=== PATIENT | female | born 1945 | race Caucasian/White ===

== ENCOUNTER 2021-10-23 05:35 | Day surgery (SDC) | payer OTHER ==
[2021-10-23] MEDS ORDERED: LIDOCAINE HCL 1%, 10 MG/ML (20ML VIAL) ONE (13:07)
[2021-10-23] MEDS ORDERED: LIDOCAINE HCL 2% 100 MG/5 ML DISP.SYRIN ONE (13:14)
[2021-10-23] MEDS ORDERED: PROPOFOL 20 ML ONE (13:14)
[2021-10-23] MEDS ORDERED: DEXAMETHASONE SOD PHOSPHATE 4 MG/1 ML VIAL ONE (13:14)
[2021-10-23] MEDS ORDERED: MIDAZOLAM HCL 2 MG/2 ML SINGLE DOSE VIAL ONE (13:15)
[2021-10-23] MEDS ORDERED: ceFAZolin SODIUM 1 GM VIAL IVPB ONE (14:41)
[2021-10-23] MEDS ORDERED: ceFAZolin SODIUM 1 GM VIAL ONE (14:43)
[2021-10-23] MEDS ORDERED: ONDANSETRON 4 MG/2 ML VIAL IVPUSH PRN (15:05)
[2021-10-23] MEDS ORDERED: LIDOCAINE HCL 1%, 10 MG/ML (20ML VIAL) INF ONE (15:05)
[2021-10-23] MEDS ORDERED: LACTATED RINGERS SOLUTION 1,000 ML IV SCH (15:15)
[2021-10-23 16:02] VITALS: TEMP 98.4
[2021-10-23 16:49] VITALS: BP 121/79; PULSE 88
== END 2021-10-23 16:30 | disposition home or self-care (01) ==
LOC: JASU-SURG 05:35
PROVIDERS: ATTEND Surgery Vascular Surgery
PROC: 0J2TXYZ Change Other Device in Trunk Subcutaneous Tissue and Fascia, External Approach (ICD-10-PCS; principal; 2021-10-23 14:00)
DX: T82.898A Other specified complication of vascular prosthetic devices, implants and grafts, initial encounter (principal); N18.6 End stage renal disease
CPT/HCPCS: 36415; 71045-TC-FY; 76000-TC-FY; 84132; 94760; J1644

== ENCOUNTER 2021-10-25 18:20 | Inpatient (IN) | payer OTHER ==
[2021-10-25] MEDS ORDERED: ACETAMINOPHEN 1000 MG/100 ML BAG IVPB ONE (20:07)
[2021-10-25] MEDS ORDERED: LACTATED RINGERS SOLUTION 1000 ML INFUS.BAG IV ONE (20:08)
[2021-10-25] MEDS ORDERED: MEROPENEM 1 GM in DEXTROSE 5%-WATER 100 ML IVPB ONE (20:23)
[2021-10-25] MEDS ORDERED: ACETAMINOPHEN INJECTION 100 ML IVPB ONE (22:04)
[2021-10-25 22:30] LABS: EPI CELLS >36 /uL (0-25.1); HYALINE CASTS 2 /uL (0-3.1); PH,URINE 6.5 (5.0-8.0); URINE APPEARANCE CLEAR; URINE BACTERIA 3 /uL (0-1359); URINE BILIRUBIN NEGATIVE (NEGATIVE); URINE COLOR YELLOW; URINE GLUCOSE (UA) 1+ (NEGATIVE); URINE KETONE NEGATIVE (NEGATIVE); URINE LEUK ESTERASE NEGATIVE (NEGATIVE); URINE NITRITE NEGATIVE (NEGATIVE); URINE PROTEIN 4+ (NEGATIVE); URINE RBC 41 /uL (0-23.9); URINE UROBILINOGEN 0.2 mg/dL (0.2-1.0); URINE WBC 42 /uL (0-25.8)
[2021-10-25 22:33] LABS: BASO % 0.2 % (0-2.0); HEMATOCRIT 21.8 % (32.4-45.2); LYMPH % 5.7 % (8-40); MCH 28.7 pg (25.7-33.7); MCHC 32.2 g/dl (32.0-36.0); MEAN CELL VOLUME 89.1 fl (80-96); MEAN PLT VOLUME 7.2 fl (7.5-11.1); MONO % 6.5 % (3.8-10.2); NEUT % 87.6 % (42.8-82.8); PLATELET COUNT 317 10^3/uL (134-434); RBC 2.45 M/mm3 (3.60-5.2); RDW 17.1 % (11.6-15.6); WHITE BLOOD COUNT 19.1 K/mm3 (4.0-10.0)
[2021-10-25 22:34] LABS: VENOUS BASE EXCESS -0.7 mmol/L (-2-2); VENOUS PCO2 42.5 mmHg (38-52); VENOUS PH 7.378 (7.310-7.410)
[2021-10-25 22:43] LABS: INR 1.09 (0.83-1.09); PROTHROMBIN TIME (PATIENT) 12.6 SEC (9.7-13.0)
[2021-10-25 22:45] LABS: ACTIVATED PTT 30.1 SECONDS (25.2-36.5)
[2021-10-25 23:02] LABS: CALCIUM 7.7 mg/dL (8.5-10.1)
[2021-10-25 23:03] LABS: ALBUMIN 1.5 g/dl (3.4-5.0)
[2021-10-25 23:06] LABS: CREATININE 2.4 mg/dL (0.55-1.3)
[2021-10-25 23:07] LABS: BILIRUBIN,TOTAL 0.2 mg/dL (0.2-1); TOT PROT 4.6 g/dl (6.4-8.2)
[2021-10-26 05:21] VITALS: BMI 22.5
[2021-10-26 07:16] LABS: ALBUMIN 1.2 g/dl (3.4-5.0); BLOOD UREA NITROGEN 31.4 mg/dL (7-18); CALCIUM 7.2 mg/dL (8.5-10.1)
[2021-10-26 07:19] LABS: CREATININE 2.8 mg/dL (0.55-1.3)
[2021-10-26 07:21] LABS: BILIRUBIN,TOTAL 0.3 mg/dL (0.2-1); TOT PROT 3.9 g/dl (6.4-8.2)
[2021-10-26] MEDS: CALCIUM ACETATE 667 MG CAPSULE (FP) PO SCH ×2 (12:41→17:44)
[2021-10-26] MEDS ORDERED: FUROSEMIDE 40 MG/4 ML INJECTABLE VIAL IVPUSH SCH ×2 (14:00→21:15)
[2021-10-26] MEDS: METOPROLOL TARTRATE 25 MG TABLET (FP) PO SCH ×2 (16:13→21:34)
[2021-10-26] MEDS: VANCOMYCIN/WATER FOR INJ (PEG) 1,000 MG/200 ML BAG IVPB ONE ×2 (17:43→21:32)
[2021-10-26] MEDS: ROSUVASTATIN CA 10 MG TABLET PO SCH (21:34)
[2021-10-27 08:48] LABS: BASO % 0.4 % (0-2.0); EOS % 0.6 % (0-4.5); HEMATOCRIT 25.3 % (32.4-45.2); HEMOGLOBIN 8.1 GM/dL (10.7-15.3); LYMPH % 12.5 % (8-40); MCH 28.2 pg (25.7-33.7); MEAN CELL VOLUME 88.2 fl (80-96); MONO % 9.8 % (3.8-10.2); NEUT % 76.7 % (42.8-82.8); PLATELET COUNT 345 10^3/uL (134-434); RBC 2.87 M/mm3 (3.60-5.2); RDW 19.7 % (11.6-15.6)
[2021-10-27] MEDS ORDERED: APIXABAN 2.5 MG TABLET PO SCH (10:00)
[2021-10-27] MEDS: APIXABAN 2.5 MG TABLET PO SCH ×2 (10:37→21:45)
[2021-10-27] MEDS: METOPROLOL TARTRATE 50 MG TABLET (FP) PO SCH ×2 (10:37→21:45)
[2021-10-27] MEDS: CALCIUM ACETATE 667 MG CAPSULE (FP) PO SCH ×4 (10:37→18:12)
[2021-10-27] MEDS: ROSUVASTATIN CA 10 MG TABLET PO SCH (21:45)
[2021-10-28] MEDS: CALCIUM ACETATE 667 MG CAPSULE (FP) PO SCH ×3 (09:00→17:18)
[2021-10-28] MEDS: LACTOBACILLUS ACIDOPHILUS 1 TABLET PO SCH (11:03)
[2021-10-28] MEDS: METOPROLOL TARTRATE 50 MG TABLET (FP) PO SCH ×2 (11:04→21:48)
[2021-10-28] MEDS: APIXABAN 2.5 MG TABLET PO SCH ×2 (11:04→21:48)
[2021-10-28] MEDS: CLINDAMYCIN HCL 150 MG CAPSULE (FP) PO SCH ×2 (14:46→21:49)
[2021-10-28] MEDS: ROSUVASTATIN CA 10 MG TABLET PO SCH (21:49)
[2021-10-29] MEDS: CLINDAMYCIN HCL 150 MG CAPSULE (FP) PO SCH ×3 (06:57→21:17)
[2021-10-29 09:00] LABS: HEMATOCRIT 26.6 % (32.4-45.2); HEMOGLOBIN 8.7 GM/dL (10.7-15.3); MCH 28.9 pg (25.7-33.7); MCHC 32.6 g/dl (32.0-36.0); MEAN CELL VOLUME 88.9 fl (80-96); MEAN PLT VOLUME 7.6 fl (7.5-11.1); PLATELET COUNT 423 10^3/uL (134-434); RBC 2.99 M/mm3 (3.60-5.2); WHITE BLOOD COUNT 9.7 K/mm3 (4.0-10.0)
[2021-10-29] MEDS: CALCIUM ACETATE 667 MG CAPSULE (FP) PO SCH ×3 (09:25→17:25)
[2021-10-29] MEDS: LACTOBACILLUS ACIDOPHILUS 1 TABLET PO SCH (09:25)
[2021-10-29] MEDS: APIXABAN 2.5 MG TABLET PO SCH ×2 (09:26→21:21)
[2021-10-29] MEDS: METOPROLOL TARTRATE 50 MG TABLET (FP) PO SCH ×2 (09:26→21:21)
[2021-10-29 10:19] LABS: ANISOCYTOSIS 0; HELMET CELLS 0; HOWELL-JOLLY BODIES 0; MACROCYTOSIS 0; OVALOCYTE 0; ROULEAU 0; SICKELED CELLS 0; TARGET CELLS 0; TEAR DROP CELLS 0; TOXIC GRANULATION 0
[2021-10-29] MEDS ORDERED: SODIUM CHLORIDE 250 ML IV PRN (11:38)
[2021-10-29] MEDS: ROSUVASTATIN CA 10 MG TABLET PO SCH (21:22)
[2021-10-30] MEDS: CLINDAMYCIN HCL 150 MG CAPSULE (FP) PO SCH ×2 (06:02→14:17)
[2021-10-30 07:29] LABS: HEMATOCRIT 25.3 % (32.4-45.2); HEMOGLOBIN 8.2 GM/dL (10.7-15.3); MCH 28.6 pg (25.7-33.7); MCHC 32.6 g/dl (32.0-36.0); MEAN CELL VOLUME 87.8 fl (80-96); MEAN PLT VOLUME 7.3 fl (7.5-11.1); PLATELET COUNT 422 10^3/uL (134-434); RBC 2.88 M/mm3 (3.60-5.2); RDW 19.5 % (11.6-15.6); WHITE BLOOD COUNT 9.6 K/mm3 (4.0-10.0)
[2021-10-30 07:45] LABS: CALCIUM 7.6 mg/dL (8.5-10.1)
[2021-10-30 07:46] LABS: ALBUMIN 1.4 g/dl (3.4-5.0)
[2021-10-30 07:49] LABS: CREATININE 5.2 mg/dL (0.55-1.3)
[2021-10-30 07:51] LABS: BILIRUBIN,TOTAL 0.3 mg/dL (0.2-1); TOT PROT 4.5 g/dl (6.4-8.2)
[2021-10-30 07:55] LABS: BLOOD UREA NITROGEN 59.3 mg/dL (7-18)
[2021-10-30 08:55] LABS: ANISOCYTOSIS 2+; MACROCYTOSIS 0
[2021-10-30] MEDS: CALCIUM ACETATE 667 MG CAPSULE (FP) PO SCH ×2 (10:03→12:13)
[2021-10-30] MEDS: APIXABAN 2.5 MG TABLET PO SCH (10:03)
[2021-10-30] MEDS: LACTOBACILLUS ACIDOPHILUS 1 TABLET PO SCH (10:03)
[2021-10-30] MEDS: METOPROLOL TARTRATE 50 MG TABLET (FP) PO SCH (10:04)
[2021-10-30 16:01] VITALS: PULSE 82
[2021-10-30 16:03] VITALS: BP 122/69; TEMP 97.6
== END 2021-10-30 20:27 | disposition home health service (06) | DRG 602 ==
LOC: JER 18:20 → JERBED 21:08 → J4W 10-26 03:28
PROVIDERS: ADMIT Internal Medicine; ATTEND Family Medicine
DX: L03.116 Cellulitis of left lower limb (principal); N18.6 End stage renal disease; I48.20 Chronic atrial fibrillation, unspecified; I24.8 Other forms of acute ischemic heart disease; I12.0 Hypertensive chronic kidney disease with stage 5 chronic kidney disease or end stage renal disease; N17.9 Acute kidney failure, unspecified; L97.828 Non-pressure chronic ulcer of other part of left lower leg with other specified severity; L03.115 Cellulitis of right lower limb; I12.9 Hypertensive chronic kidney disease with stage 1 through stage 4 chronic kidney disease, or unspecified chronic kidney disease; D64.9 Anemia, unspecified; E78.5 Hyperlipidemia, unspecified; R77.8 Other specified abnormalities of plasma proteins; D63.8 Anemia in other chronic diseases classified elsewhere; M79.89 Other specified soft tissue disorders; R53.1 Weakness; I08.1 Rheumatic disorders of both mitral and tricuspid valves; R26.2 Difficulty in walking, not elsewhere classified; N25.0 Renal osteodystrophy; Z99.2 Dependence on renal dialysis; Z88.0 Allergy status to penicillin; Z86.73 Personal history of transient ischemic attack (TIA), and cerebral infarction without residual deficits
CPT/HCPCS: 36415; 36430; 71045-TC-FY; 80053; 81003; 82553; 82728; 82803; 83540; 83550; 83605; 84484; 85025; 85610; 85730; 86803; 86850; 86900; 86901; 86922; 87040; 87086; 87186; 87340; 93005; 93010; 93306-TC; 97116-GP; 97161-GP; 99285-25; C9803-CS; P9058; U0003; U0005